=== PATIENT | male | born 1960 | race Caucasian/White ===

== ENCOUNTER → 2018-06-08 | Outpatient (CLI) | payer OTHER ==
[~2018-06-08] MED LIST: AFRIN15 ML INH; ALKA-SELTZER O1 EACH PO; BPH MED PO; COLACE100 MG PO; NORCO 5-325 TA1 EACH PO; NORVASC5 MG PO; TAGAMET HB200 MG PO
== END ==
LOC: HYPER 06-06 09:58
DX: T81.31XD Disruption of external operation (surgical) wound, not elsewhere classified, subsequent encounter (principal); I10 Essential (primary) hypertension; K21.9 Gastro-esophageal reflux disease without esophagitis; Z87.891 Personal history of nicotine dependence; F41.9 Anxiety disorder, unspecified; Z79.82 Long term (current) use of aspirin; Z79.84 Long term (current) use of oral hypoglycemic drugs; Y92.89 Other specified places as the place of occurrence of the external cause; Y83.8 Other surgical procedures as the cause of abnormal reaction of the patient, or of later complication, without mention of misadventure at the time of the procedure